=== PATIENT | female | born 1995 | race Caucasian/White ===

== ENCOUNTER 2017-02-18 19:51 | Emergency (ER) | payer MEDICAID ==
[~2017-02-18] VITALS: Ht 167.6 cm; Wt 87.0 kg
[2017-02-19] MEDS ORDERED: KETOROLAC 30MG/ML VIAL IM ONE (01:15)
[2017-02-19 06:00] VITALS: BP 107/56
== END 2017-02-19 06:00 | disposition home or self-care (01) ==
LOC: ER 19:51
DX: S39.011A Strain of muscle, fascia and tendon of abdomen, initial encounter (principal); W01.0XXA Fall on same level from slipping, tripping and stumbling without subsequent striking against object, initial encounter; Y93.89 Activity, other specified; Y99.8 Other external cause status; Y92.89 Other specified places as the place of occurrence of the external cause; M25.551 Pain in right hip
CPT/HCPCS: 73521; 81025; 96372; 99284; J1885